=== PATIENT | male | born 1965 | race Caucasian/White ===

== ENCOUNTER 2023-03-28 23:15 | Emergency (ER) | payer OTHER, SELFPAY ==
[2023-03-28 23:15] VITALS: BP 182/96
[2023-03-28 23:16] VITALS: BP 182/96; PULSE 96; RESP 18; TEMP 36.9; O2SAT 97; BMI 29.4
--- NOTE | 2023-03-28 23:18 | ED_ITS ---
HPI - Psych General Chief Complaint: Psychiatric Symptoms Stated Complaint: SUICIDAL Time Seen by Provider: 03/28/23 23:18 History of Present Illness HPI Narrative: 58-year-old male was brought to emergency department from home after his ex- girlfriend called EMS stating that he was suicidal. The patient states that he had several shots of bourbon earlier tonight and texted his ex-girlfriend that he was going to take an overdose of medications. He put a bunch of pills in his mouth and texted the picture of himself with the pills in his mouth to his ex- girlfriend. The patient states they were aspirin in his mouth and he did not swallow any of them. He states that he is in an ongoing dispute with his ex- girlfriend, whom he was with for approximately one year and ended up getting a large sum of money to, he states that he has been telling her that she needs to return some of the money that he loaned to her which makes her angry. He states that she broke up with him and is now with an alcoholic that nobody in her family likes. He states that she is ruining her life and her relationship with her kids and family for this rigo that nobody likes. For some reason he is staying in contact with her and he states it is because he wants his money back. He denies that he is suicidal. He denies he is homicidal. He admits that he made bad choices in putting the medications in his mouth, taking a picture and sending her a copy of the picture. He wishes he had gone to bed earlier and avoided this trip to the ER. He has never been psychiatrically admitted. 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 He complains of right thumb and medial wrist area pain where he had [facility] surgery. He had 3cc of fluid removed from the right surgery site area yesterday and was started on Doxycycline. Related Data Home Medications Medication Instructions Recorded Confirmed amlodipine 5 mg tablet (Norvasc) 5 mg PO DAILY 03/28/23 03/28/23 levothyroxine 50 mcg tablet 50 mcg PO DAILY 03/28/23 03/28/23 (Euthyrox) sertraline 100 mg tablet (Zoloft) 100 mg PO DAILY 03/28/23 03/28/23 simvastatin 20 mg tablet 20 mg PO DAILY 03/28/23 03/28/23 dulaglutide 1.5 mg/0.5 mL 1.5 mg subcut .weekly 03/29/23 03/29/23 subcutaneous pen injector (Trulicity) Allergies Allergy/AdvReac Type Severity Reaction Status Date / Time Penicillins Allergy Unknown Verified 03/28/23 23:20 Review of Systems ROS Status of ROS 10 or more systems reviewed and unremarkable except as noted in history and below PFSH PFS Social History Smoking status: Light tobacco smoker Exam Narrative Exam Narrative: Nurses note and vital signs reviewed and patient is not hypoxic. Blood pressure is noted to be elevated at 182/96 General: The patient appears well and in no apparent distress. Patient is resting comfortably on cart. Positive smell of alcohol on breath Skin: Warm, dry, no pallor noted. There is no rash noted. Head: Normocephalic, atraumatic Eye: Normal conjunctiva, no drainage, EOMI. PERRL Ears, Nose, Mouth, and Throat: oral mucosa is moist. Cardiovascular: Regular Rate and Rhythm S1S2, no murmur, rub or gallop Respiratory: Patient is in no distress, no accessory muscle use, lungs are clear to auscultation, no wheezing, rales or rhonchi Back: non-tender, no CVA tenderness bilaterally to percussion. GI: Normal bowel sounds, no tenderness to palpation, no masses appreciated. No rebound, guarding, or rigidity noted. Musculoskeletal: The patient has no evidence of calf tenderness, mild swelling and redness to the right medial MCP of the thumb where he recently had surgery Neurological: A&O x4, normal speech Psychiatric: Cooperative, denies ongoing SI or HI Constitutional Vital Signs, click to edit/add: Last Vital Signs Temp 98.5 F 03/28/23 23:16 Pulse 96 H 03/28/23 23:20 Resp 18 03/28/23 23:20 BP 154/88 H 03/29/23 02:14 Pulse Ox 97 03/29/23 02:40 O2 Del Method Room Air 03/28/23 23:16 Course Vital Signs Vital signs: Vital Signs Blood Pressure 182/96 H 03/28/23 23:15 Temperature 98.5 F 03/28/23 23:16 Pulse Rate 96 H 03/28/23 23:20 Respiratory Rate 18 03/28/23 23:20 Blood Pressure 154/88 H 03/29/23 02:14 Pulse Oximetry 97 03/29/23 02:40 Oxygen Delivery Method Room Air 03/28/23 23:16 MDM - Psych MDM Narrative Medical decision making narrative: This 58-year-old male was brought to the emergency department by EMS after EMS was called by his former girlfriend. The patient was drinking earlier and texted his former girlfriend a picture of himself with pills in his mouth stating that he was going to take them, he then [facility] stating that he was blacking out. Upon arrival he was awake, alert, oriented, appeared mildly intoxicated but otherwise cooperative. He denied that he was suicidal. He admits that he sent his ex-girlfriend this picture of him with pills in his mouth but states that he spit them all out after sending her that picture and did not swallow any of them. He states that there were approximately 6 aspirin in his mouth in the picture. He has been going through a breakup with this woman since December. He state s that she left him for an alcoholic after he gave her a lot of money to help get her affairs in order after she had hip surgery. He states that he told her that he wanted $6000 of the money he had given her back and he would leave her alone. He has been in an ongoing [place] with her since the breakup. He has never been admitted psychiatrically. He did have a right thumb surgery at the end of January and was seen by the hand surgeon yesterday and had 3 mL of fluid aspirated from this area and was started on doxycycline. An EKG was done upon arrival which was a normal sinus rhythm with no acute c hanges. Routine labs were ordered for psychiatric medical clearance. The patient's alcohol was elevated at 136. His aspirin and Tylenol levels are normal. He has a normal white count and hemoglobin. Electrolytes are normal with the exception of a glucose of 391 ( he is diabetic and takes Trulicity on Sundays). Urine toxicology is normal. He was referred for evaluation by [facility]. P did speak to the patient's ex-girlfriend who explained to them that he has been threatening suicide since their breakup and has sent her pictures of empty alcohol bottles stating that he was going to get in his car and and his life and other threatening text messages. [facility] did not feel comfortable letting the patient be discharged and he was pink slipped. This was explained to him by the nursing garment supervisor. He became extremely upset and irate at this but has not been aggressive or uncooperative. He requested to NOT be transferred to [facility] as he is employed by that hospital. [facility] then reached out to other facilities and is being reviewed by [facility] in [place]. He was given a dose of doxycycline to keep him on a normal schedule for his right wrist medication as well as a Percocet and Zofran for the right wrist pain. He was accepted for transfer to [facility], Dr Coreas accepting physician Lab Data Labs: Lab Results 03/28/23 03/28/23 Range/Units 01:32 23:36 WBC 11.1 H (4.0-11.0) 10^3/uL RBC 4.54 L (4.70-6.10) 10^6/uL Hgb 14.2 (14.0-18.0) g/dL Hct 41.2 L (42.0-54.0) % MCV 90.7 (80.0-94.0) fL MCH 31.3 (25.9-34.0) pg MCHC 34.5 (29.9-35.2) g/dL RDW 12.5 (11.0-15.0) % Plt Count 190 (150-450) 10^3/uL MPV 9.9 (9.5-13.5) fL Neut % (Auto) 75.3 H (43.0-75.0) % Lymph % (Auto) 15.5 L (20.5-60.0) % Dillon % (Auto) 7.8 (1.7-12.0) % Eos % (Auto) 0.8 L (0.9-7.0) % Baso % (Auto) 0.4 (0.2-2.0) % Neut # (Auto) 8.4 H (1.4-6.5) 10^3/uL Lymph # (Auto) 1.7 (1.2-3.8) 10^3/uL Dillon # (Auto) 0.9 H (0.3-0.8) 10^3/uL Eos # (Auto) 0.1 (0.0-0.7) 10^3/uL Baso # (Auto) 0.0 (0.0-0.1) 10^3/uL Abs Immat Gran (auto) 0.02 (0.00-0.03) 10^3/uL Imm/Tot Granulo (auto) 0.2 (0.0-0.5) % Sodium 140 (136-145) mmol/L Potassium 3.3 L (3.5-5.1) mmol/L Chloride 104 (98-107) mmol/L Carbon Dioxide 27.1 (21.0-32.0) mmol/L Anion Gap 12.2 BUN 14.0 (7.0-18.0) mg/dL Creatinine 0.84 (0.70-1.30) mg/dL Est GFR ( Amer) >60 (>=60) Est GFR (Non-Af Amer) >60 (>=60) BUN/Creatinine Ratio 16.7 Glucose 391 H (74-106) mg/dL Calcium 8.3 L (8.5-10.1) mg/dL Total Bilirubin 0.3 (0.2-1.0) mg/dL AST 17 (15-37) U/L ALT 19 (16-63) U/L Alkaline Phosphatase 85 (46-116) U/L Total Protein 7.1 (6.4-8.2) g/dL Albumin 3.8 (3.4-5.0) g/dL Globulin 3.3 g/dL Albumin/Globulin Ratio 1.2 Salicylates 4.6 (<=19.9) mg/dL Urine Opiates Screen Negative (NEGATIVE) Ur Buprenorphine Scrn Negative (NEGATIVE) Ur Oxycodone Screen Negative (NEGATIVE) Urine Methadone Screen Negative (NEGATIVE) Ur Propoxyphene Screen Negative (NEGATIVE) Acetaminophen <2.0 L (10.0-30.0) ug/mL Ur Barbiturates Screen Negative (NEGATIVE) U Tricyclic Antidepress Negative (NEGATIVE) Ur Phencyclidine Scrn Negative (NEGATIVE) Ur Amphetamines Screen Negative (NEGATIVE) U Methamphetamines Scrn Negative (NEGATIVE) U Benzodiazepines Scrn Negative (NEGATIVE) Urine Cocaine Screen Negative (NEGATIVE) U Cannabinoids Screen Negative (NEGATIVE) Ethanol Quant 136 mg/dL ECG Data Attestation: I personally reviewed and interpreted this ECG as follows: (Sinus rhythm at 92 beats for minute, normal axis, normal intervals, nonspecific ST changes, no acute ST segment elevation or T-wave inversion) Discharge Plan Discharge Chief Complaint: Psychiatric Symptoms Clinical Impression: Hyperglycemia due to type 2 diabetes mellitus, Depression Patient Disposition: [facility] Time of Disposition Decision: 03:19 Condition: Good Prescriptions / Home Meds: No Action levothyroxine [Euthyrox] 50 mcg tablet 50 mcg PO DAILY simvastatin 20 mg tablet 20 mg PO DAILY sertraline [Zoloft] 100 mg tablet 100 mg PO DAILY amlodipine [Norvasc] 5 mg tablet 5 mg PO DAILY Trulicity 1.5 mg/0.5 mL pen injector 1.5 mg SUBCUT .weekly Patient Comments: Pt states on Sundays Referrals: Physician,Non-Staff, MD [Primary Care Provider] - 1 week
--- NOTE | 2023-03-28 23:18 | ECG_ITS ---
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
[2023-03-28 23:20] VITALS: PULSE 96; RESP 18
[2023-03-28 23:35] VITALS: PULSE 92
[2023-03-28 23:42] LABS: Basophils Percent Auto 0.4 % (0.2-2.0); Eosinophils Absolute Auto 0.1 10^3/uL (0.0-0.7); Eosinophils Percent Auto 0.8 % (0.9-7.0); Hematocrit 41.2 % (42.0-54.0); Hemoglobin 14.2 g/dL (14.0-18.0); Immature Granulocytes Abs Auto 0.02 10^3/uL (0.00-0.03); Immature Granulocytes Pct Auto 0.2 % (0.0-0.5); Lymphocytes Absolute Auto 1.7 10^3/uL (1.2-3.8); Lymphocytes Percent Auto 15.5 % (20.5-60.0); Mean Corpuscular HGB Conc 34.5 g/dL (29.9-35.2); Mean Corpuscular Hemoglobin 31.3 pg (25.9-34.0); Mean Corpuscular Volume 90.7 fL (80.0-94.0); Mean Platelet Volume 9.9 fL (9.5-13.5); Monocytes Absolute Auto 0.9 10^3/uL (0.3-0.8); Monocytes Percent Auto 7.8 % (1.7-12.0); Neutrophils Absolute Auto 8.4 10^3/uL (1.4-6.5); Neutrophils Percent Auto 75.3 % (43.0-75.0); Platelet Count 190 10^3/uL (150-450); Red Blood Count 4.54 10^6/uL (4.70-6.10); Red Cell Distribution Width 12.5 % (11.0-15.0); White Blood Count 11.1 10^3/uL (4.0-11.0)
[2023-03-28 23:59] LABS: Ethanol 136 mg/dL; Salicylate 4.6 mg/dL (<=19.9)
[2023-03-29] LABS: Acetaminophen <2.0 ug/mL (10.0-30.0)
[2023-03-29 00:01] LABS: Alanine Aminotransferase 19 U/L (16-63); Albumin Globulin Ratio 1.2; Albumin Level 3.8 g/dL (3.4-5.0); Alkaline Phosphatase 85 U/L (46-116); Anion Gap 12.2; Aspartate Amino Transferase 17 U/L (15-37); BUN Creatinine Ratio 16.7; Bilirubin Total 0.3 mg/dL (0.2-1.0); Calcium 8.3 mg/dL (8.5-10.1); Carbon Dioxide 27.1 mmol/L (21.0-32.0); Chloride 104 mmol/L (98-107); Estimated GFR (African America >60 (>=60); Estimated GFR (Non-African Ame >60 (>=60); Globulin 3.3 g/dL; Glucose 391 mg/dL (74-106); Potassium 3.3 mmol/L (3.5-5.1); Sodium 140 mmol/L (136-145); Total Protein 7.1 g/dL (6.4-8.2)
--- NOTE | 2023-03-29 00:42 | PC.NURSE ---
Pt face timing with Lindsay counselor from [facility] at this time
[2023-03-29 02:14] VITALS: BP 154/88; O2SAT 70
[2023-03-29 02:20] VITALS: O2SAT 95
[2023-03-29] MEDS: ONDANSETRON 4 MG RAPDIS TABLET SL (02:22)
[2023-03-29] MEDS: DOXYCYCLINE MONOHYDRATE 100 MG CAPSULE PO (02:23)
[2023-03-29 02:25] LABS: Amphetamine Screen Urine NEGATIVE (NEGATIVE); Barbiturates Screen Urine NEGATIVE (NEGATIVE); Benzodiazepines Screen Urine NEGATIVE (NEGATIVE); Buprenorphine Screen Urine NEGATIVE (NEGATIVE); Cannabinoid Screen Urine NEGATIVE (NEGATIVE); Cocaine Screen Urine NEGATIVE (NEGATIVE); Methadone Screen Urine NEGATIVE (NEGATIVE); Methamphetamines Screen Urine NEGATIVE (NEGATIVE); Opiate Screen Urine NEGATIVE (NEGATIVE); Oxycodone Screen Urine NEGATIVE (NEGATIVE); Phencyclidine Screen Urine NEGATIVE (NEGATIVE); Tricyclic Antidepressant Urine NEGATIVE (NEGATIVE)
[2023-03-29 02:30] VITALS: O2SAT 98
[2023-03-29 02:40] VITALS: O2SAT 97
== END 2023-03-29 03:38 ==
PROVIDERS: Emergency Provider Emergency Medicine
DX: F32.A Depression, unspecified (principal); E11.65 Type 2 diabetes mellitus with hyperglycemia; Z79.899 Other long term (current) drug therapy; Z79.890 Hormone replacement therapy; F17.210 Nicotine dependence, cigarettes, uncomplicated
CPT/HCPCS: 36415; 80053; 80179; 80307; 80320; 80329; 85025; 93005; 99285